=== PATIENT | female | born 1980 | race Caucasian/White ===

== ENCOUNTER → 2024-06-26 08:59 | Outpatient (CLI) | payer OTHER, SELFPAY ==
--- NOTE | 2024-06-26 | DI.MRI.S_ITS ---
PROCEDURE: MR HIP RT WO CON INDICATIONS: hip pain TECHNIQUE: Noncontrast coronal T1 spin echo and STIR through the bony pelvis. Coronal and axial T2 fast spin echo with fat saturation, sagittal T1 spin echo, and oblique axial T2 fast spin echo with fat saturation through the hip. COMPARISON: None. FINDINGS: Image quality: Excellent. Bones and joints: Bone marrow of the pelvic ring and proximal femurs show normal signal throughout. No intraosseous lesions or fractures. No avascular necrosis of the femoral head. The visualized lower lumbar spine appears normally aligned. Tendons and ligaments: The gluteus medius and minimus tendons demonstrate mild tendinosis distally. The proximal iliotibial band appears intact. The iliopsoas tendon appears intact, without adjacent bursal fluid collections. The origin of the hamstring tendon demonstrates mild tendinosis. The tendons for the direct and indirect heads of the rectus femoris muscle appear intact. Labrum and cartilage: Focal nondisplaced tearing is seen at the anterior superior labrum. No focal cartilage defect. No significant hip effusion. Normal morphology of the femoral head and acetabulum. Soft tissues: Visualized muscles demonstrate normal bulk and internal signal. Quadratus femoris muscle demonstrates no internal edema to suggest ischiofemoral impingement. The proximal sciatic neurovascular bundle appears normal adjacent to the hamstring tendons. Trace free fluid in the pelvis is most likely physiologic. IMPRESSION: 1. Focal nondisplaced tearing at the anterior superior labrum of the right hip. 2. Mild distal right gluteus medius and minimus tendinosis. 3. Mild proximal hamstring tendinosis. Approved by: John Hay M.D. on 06/27/2024 at 16:15
== END ==
LOC: MRI 09:02
PROVIDERS: Referring Provider Family Medicine; Visit Provider Family Medicine
DX: S73.191A Other sprain of right hip, initial encounter (principal); M25.551 Pain in right hip
CPT/HCPCS: 73721